=== PATIENT | male | born 1970 | race Hispanic/Latino ===

== ENCOUNTER 2017-10-08 15:42 | Emergency (ER) | payer OTHER ==
[2017-10-08 16:37] LABS: #Basophils 0.1 thou/uL (0.0-0.2); #Eosinphils 0.2 thou/uL (0.0-0.7); #Lymphocytes 2.1 thou/uL (1.20-3.40); #Monocytes 0.9 thou/uL (0.11-0.59); #Neutrophils 6.2 thou/uL (1.40-6.50); %Basophils 1.1 % (0.0-1.0); %Lymphocytes 22.5 % (21.0-51.0); Hematocrit 46.4 % (42.0-52.0); Mean Platelet Volume 7.3 fL (7.4-10.4); Red Blood Cell (RBC) Count 4.98 mill/uL (4.70-6.10); White Blood Cell (WBC) Count 9.4 thou/uL (4.8-10.8)
[2017-10-08 16:39] LABS: Anion Gap 7 mmol/L (-14-95); T. Carbon Dioxide 28.8 mmol/L (1.0-85.0); pH (Venous) 7.387 (7.35-7.45); vO2 Saturation-calc 77.7 % (0.0-100.0)
[2017-10-08 16:58] LABS: ALT (SGPT) 13 U/L (8-55); AST (SGOT) 12 U/L (5-34); Alkaline Phosphatase 121 U/L (40-150); Anion Gap 15 mmol/L (10-20); BUN (Urea Nitrogen) 20 mg/dL (8.9-20.6); Bilirubin, Total 0.3 mg/dL (0.2-1.2); Calc. Creatinine Clearance 0 mL/min (70-130); Calcium 9.8 mg/dL (7.8-10.44); Carbon Dioxide 25 mmol/L (22-29); Chloride 98 mmol/L (98-107); Estimated GFR-MDRD 78; Globulin 3.3 g/dL (2.4-3.5); Magnesium 2.3 mg/dL (1.6-2.6); Phosphorus 3.7 mg/dL (2.3-4.7); Protein, Total 7.2 g/dL (6.0-8.3)
[2017-10-08] MEDS ORDERED: Insulin Regular 300 UNITS/3 ML VIAL ONE (17:51)
[2017-10-08] MEDS ORDERED: Proparacaine 0.5% Opth 15 ML BOT ONE (17:54)
== END 2017-10-08 19:33 | disposition home or self-care (01) ==
LOC: ERS 15:42
DX: E11.65 Type 2 diabetes mellitus with hyperglycemia (principal); Z91.14 Patient's other noncompliance with medication regimen; F17.210 Nicotine dependence, cigarettes, uncomplicated
CPT/HCPCS: 36416; 80053; 82010; 82330; 82803; 83735; 84100; 85025; 96361; 96374; J1815

== ENCOUNTER 2024-11-23 05:51 | Day surgery (SDC) | payer OTHER ==
[2024-11-22 13:56] VITALS: BMI 24.1
[~2024-11-23 05:51] MED LIST: EPINEPHrine 0.3 MG in Ophthalmic Irrigation Solution 500 ML IRR SCH
[2024-11-23] MEDS ORDERED: Cyclopentolate 1% Opth Drop 2 ML BOT ONE (06:06)
[2024-11-23] MEDS ORDERED: PHENYLephrine 2.5% Ophth Soln 15 ml Bottle ONE (06:06)
[2024-11-23] MEDS ORDERED: PROPOFOL 20 ML ONE (06:38)
[2024-11-23] MEDS ORDERED: Midazolam HCl 2 mg/2 ml Vial ONE (06:38)
[2024-11-23] MEDS ORDERED: fentaNYL PF 100 MCG/2 ML SYRINGE ONE (06:38)
[2024-11-23] MEDS ORDERED: Lidocaine 1% PF 5 ML VIAL ONE ×2 (06:39→07:11)
[2024-11-23] MEDS ORDERED: Ondansetron PF 4 MG/2 ML Vial ONE (06:41)
[2024-11-23 06:50] LABS: Anion Gap 11 mmol/L (10-20); BUN (Urea Nitrogen) 11 mg/dL (8.4-25.7); Calc. Creatinine Clearance 97 mL/min (70-130); Carbon Dioxide 26 mmol/L (22-29); Chloride 108 mmol/L (98-107); Estimated GFR 105; Glucose 154 mg/dL (70-105); Potassium 4.1 mmol/L (3.5-5.1); Sodium 141 mmol/L (136-145)
[2024-11-23] MEDS ORDERED: CEFAZOLIN 1 GM VIAL ONE (07:11)
[2024-11-23] MEDS ORDERED: Bupivacaine 0.75% 10 ML VIAL ONE (07:11)
[2024-11-23] MEDS ORDERED: Maxitrol 0.1% Opth Oint 3.5 GM TUBE ONE (07:11)
[2024-11-23] MEDS ORDERED: Lidocaine 4% PF 5 ML AMP ONE (07:11)
[2024-11-23] MEDS ORDERED: Triamcinolone 40 MG/ML VIAL ONE (07:11)
== END 2024-11-23 09:45 | disposition home or self-care (01) ==
LOC: SDC 05:51
PROVIDERS: ATTEND Ophthalmology Retina Specialist
PROC: 08T53ZZ Resection of Left Vitreous, Percutaneous Approach (ICD-10-PCS; principal; 2024-11-23)
DX: H43.12 Vitreous hemorrhage, left eye (principal); I10 Essential (primary) hypertension; E11.9 Type 2 diabetes mellitus without complications; E78.5 Hyperlipidemia, unspecified; Z86.73 Personal history of transient ischemic attack (TIA), and cerebral infarction without residual deficits; Z89.512 Acquired absence of left leg below knee
CPT/HCPCS: 67041; 80048; 93005; J0171; J0690; J2250; J2405; J2704; J3301; J3490; 93010